=== PATIENT | male | born 1945 | race Caucasian/White ===

== ENCOUNTER 2017-07-06 08:59 | Day surgery (SDC) | payer MEDICARE, OTHER ==
[2017-07-06] VITALS (8 sets, daily range): BP systolic 122–147; BP diastolic 72–92; PULSE 60–79; TEMP 97.7
[~2017-07-06] VITALS: Ht 198.1 cm; Wt 106.8 kg
[~2017-07-06 08:59] MED LIST: CELEBREX 200MG200 MG PO; COREG 25MG25 MG/TAB PO; DIOVAN HCT 12.51 TA2 PO; FLUOXETINE20 MG PO; VITAMIN D31000 IU PO; WARFARIN SOD5 MG PO
[2017-07-06 09:16] LABS: HEMATOCRIT 41.8 % (42.0-52.0); HEMOGLOBIN 14.3 g/dl (13.5-18.0); MEAN CELL VOLUME 93 fl (80.0-100.0); MEAN CORPUSCULAR HEMOGLOBIN 32 pg (27.0-31.0); MEAN CORPUSCULAR HGB CONC 34 g/dl (33.0-37.0); MEAN PLATELET VOLUME 9.6 fl (7.4-10.4); PLATELET COUNT 129 K/mm3 (130-400); RED BLOOD COUNT 4.52 M/mm3 (4.20-5.60); REDCELL DISTRIBUTION WIDTH-CV 13.6 % (11.5-14.5); WHITE BLOOD COUNT 6.8 K/mm3 (4.8-10.8)
[2017-07-06 09:21] LABS: INR 1.3 (0.8-3.0); PROTHROMBIN TIME 14.7 SECONDS (9.7-12.8)
[2017-07-06] MEDS ORDERED: SIMBRINZA 0.2%-18 ML OP (09:30)
[2017-07-06] MEDS ORDERED: ULTRAM 50MG TAB50 MG PO (09:31)
[2017-07-06 09:32] LABS: CALCIUM 9.1 mg/dL (8.4-10.2); CREATININE, serum 1.15 mg/dL (0.66-1.25); POTASSIUM 4.3 mmol/L (3.4-5.0)
[2017-07-06] MEDS ORDERED: PRADAXA 150MG150 MG PO (09:32)
[2017-07-06] MEDS ORDERED: LANOXIN 0.25M0.25 MG PO (09:33)
[2017-07-06] MEDS ORDERED: AMBIEN 5MG TABLE5 MG PO (09:33)
[2017-07-06] MEDS ORDERED: VITAMIN B-1000 MCG/T PO (09:34)
[2017-07-06] MEDS ORDERED: COMPLETE SENIOR1 TA1 PO (09:35)
[2017-07-06] MEDS ORDERED: CEPHALEXIN500 M1 PO (12:51)
== END 2017-07-06 13:52 | disposition home or self-care (01) ==
LOC: COL.CAR 08:59
PROVIDERS: Internal Medicine Cardiovascular Disease
DX: Z45.010 Encounter for checking and testing of cardiac pacemaker pulse generator [battery] (principal); I42.8 Other cardiomyopathies; I48.2 Chronic atrial fibrillation; Z79.01 Long term (current) use of anticoagulants; G47.33 Obstructive sleep apnea (adult) (pediatric); Z80.9 Family history of malignant neoplasm, unspecified; M19.90 Unspecified osteoarthritis, unspecified site; F32.9 Major depressive disorder, single episode, unspecified; I11.0 Hypertensive heart disease with heart failure; I50.9 Heart failure, unspecified; E66.9 Obesity, unspecified; F10.20 Alcohol dependence, uncomplicated; Z87.891 Personal history of nicotine dependence
CPT/HCPCS: C1721; J0690; J2250; J3010; J7040; J7050

== ENCOUNTER 2024-06-05 09:24 | Inpatient (IN) | payer MEDICARE ==
[2024-06-05] VITALS (8 sets, daily range): BP systolic 146–179; BP diastolic 78–95; PULSE 70–81; TEMP 97.5–98.4
[~2024-06-05] VITALS: Ht 198.1 cm; Wt 102.0 kg
[~2024-06-05 09:24] MED LIST changes: +AMBIEN 5MG TABLE5 MG PO; +B-121000 MCG PO; +CEPHALEXIN500 M1 PO; +COMPLETE SENIOR1 TA1 PO; +CREATINE PO; +DILAUDID 4MG TAB4 MG PO; +FLOMAX 0.40.4 MG/CAP PO; +LANOXIN 0.25M0.25 MG PO; +PRADAXA 150MG150 MG PO; +SIMBRINZA 0.2%-18 ML OP; +TOPROL XL 25MG25 MG PO; +ULTRAM 50MG TAB50 MG PO; +VITAMIN B-1000 MCG/T PO; +VITAMIN D31000 I1 PO; +VOLTAREN GEL 1%1 TU TP; +WHEY PROTEIN IS1 POW PO; +XALATAN EYE DROPS OD; +ZOLOFT 100MG100 MG PO
--- NOTE | 2024-06-05 10:38 | NUR ---
PT ADMITTED TO ROOM 344 AMBULATORY. PT IS A/O X4, VSS, PAIN RATING 4/10. TRYO STOUT NOTIFIED OF PT ARRIVAL. IV TO RAC FROM [place].
[2024-06-05] MEDS ORDERED: NEURONTIN300 MG/CAP PO (11:12)
[2024-06-05] MEDS ORDERED: ISOPTIN SR120 MG PO (11:13)
[2024-06-05] MEDS ORDERED: ATIVAN 0.50.5 MG/TAB PO (11:13)
[2024-06-05] MEDS ORDERED: HYDROmorphone 4 MG TAB PO PRN (12:15)
[2024-06-05] MEDS ORDERED: Ondansetron 4 MG/2 ML VIAL IV PRN (12:15)
[2024-06-05] MEDS ORDERED: NS 1,000 ML IV SCH (12:15)
[2024-06-05] MEDS ORDERED: Morphine 4 MG/ML VIAL IV PRN (12:15)
[2024-06-05] MEDS ORDERED: hydrALAZINE 20 MG/ML 1 ML VIAL IV PRN (13:00)
--- NOTE | 2024-06-05 13:54 | NUR ---
SW met with patient and to complete initial assessment for discharge planning. Patient verified that they live in [place]. Patient lists his Rachel ([phone]) as contact and DPOA. Patient states he sees Dr. Alexis Hammond as his PCP and uses [facility] in [place]. Patient states he uses a walking stick and CPAP at home. Patient reports to be independent with all activities and plans to return home at discharge, Discharge plan: Home
--- NOTE | 2024-06-05 14:31 | NUR ---
CONTACTED SHAYLEE SERNA OUTPATIENT R/T SCHEDULING ERCP FOR PT. ALREADY SCHEDULED. DR. JUNG ROUTINE ERCP ORDERS.
--- NOTE | 2024-06-05 19:16 | NUR ---
report received from ric berger. pt resting in bed reading a book. pt denies pain. ivf running to left ac without issue. call light in reach. all needs met at this time.
--- NOTE | 2024-06-05 20:48 | NUR ---
shift assessment complete, see documentation. pt tolerated hs meds well. pt reporting 6/10 abd cramping, prn morphine administered per orders. call light in reach. all needs met at this time.
[2024-06-05] MEDS ORDERED: Latanoprost 0.005% Ophth Soln 2.5 ML BOTTLE OP SCH (21:00)
[2024-06-06] VITALS (20 sets, daily range): BP systolic 128–183; BP diastolic 65–103; PULSE 62–86; TEMP 97.9–98.8
[2024-06-06 06:09] LABS: BASO % 0.1 % (0.0-2.0); EOS # 0.1 K/mm3 (0.0-0.7); GRAN # 5.4 K/mm3 (1.4-6.5); GRAN % 75.5 % (42.2-75.2); HEMATOCRIT 38.9 % (42.0-52.0); HEMOGLOBIN 13.2 g/dl (13.5-18.0); LYMPH # 1.1 K/mm3 (1.2-3.4); MEAN CELL VOLUME 93 fl (80.0-100.0); MEAN CORPUSCULAR HEMOGLOBIN 31 pg (27-31); MEAN CORPUSCULAR HGB CONC 34 g/dl (33.0-37.0); MEAN PLATELET VOLUME 9.4 fl (7.4-10.4); MONO # 0.5 K/mm3 (0.1-0.6); MONO % 6.3 % (1.7-9.3); PLATELET COUNT 145 K/mm3 (130-400); REDCELL DISTRIBUTION WIDTH-CV 13.7 % (11.5-14.5)
[2024-06-06 06:25] LABS: CALCIUM 8.3 mg/dL (8.4-10.2); CREATININE, serum 1.18 mg/dL (0.72-1.25); POTASSIUM 4.1 mEq/L (3.5-4.5); TOTAL PROTEIN 5.3 g/dl (6.2-8.1)
[2024-06-06] MEDS ORDERED: Gabapentin 300 MG CAP PO SCH (09:00)
[2024-06-06] MEDS ORDERED: Verapamil SR 120 MG TAB PO SCH (09:00)
[2024-06-06] MEDS ORDERED: Digoxin 0.25 MG TAB PO SCH (09:00)
--- NOTE | 2024-06-06 09:38 | NUR ---
AM MEDS GIVEN ORDERED. CONSENT SIGNED ON CHART, PLAN ON ERCP LATER TODAY WITH DR. MERCADO. PT IS A/O X4, IV TO RAC.
[2024-06-06] MEDS ORDERED: Lidocaine PF 2% (20 MG/ML) 5 ML VIAL ONE (11:52)
[2024-06-06] MEDS ORDERED: Iohexol 350 - 100 ML VIAL BILE DUCT ONE (12:31)
--- NOTE | 2024-06-06 13:12 | NUR ---
CONTACTED DR. RAMOS FOR SURGICAL CONSULT FROM DR. JUNG.
--- NOTE | 2024-06-06 13:25 | NUR ---
PT TO ROOM 344 PER BED WITH REPORT FROM NARESH SERNA ENDO @1300 . PT IS A/O X4, VSS, PT DENIES PAIN. AT BEDSIDE.
[2024-06-06] MEDS ORDERED: Lisinopril 10 MG TAB PO SCH (15:16)
--- NOTE | 2024-06-06 21:30 | NUR ---
BP RECHECK 151/86.
--- NOTE | 2024-06-06 21:46 | NUR ---
SHIFT ASSESSMENT COMPLETE. PATIENT RESTING IN BED. PATIENTS BP ELEVATED 183/97 AND PATIENT REPORTING PAIN 7/10, PAIN MEDS GIVEN PER ORDERS. WILL RECHECK BP IN ONE HOUR. ALL NIGHT MEDS GIVEN PER ORDERS. PATIENT HAS NO OTHER COMPLAINTS OR REQUEST AT THIS TIME. CALL LIGHT IN REACH.
--- NOTE | 2024-06-06 23:15 | NUR ---
PATIENT BP ELEVATED 183/103. MEDICATION GIVEN ORDERED.WILL RECHECK BP IN 1 HOUR
[2024-06-07] VITALS (12 sets, daily range): BP systolic 113–183; BP diastolic 59–86; PULSE 50–77; TEMP 97.7–98.7
--- NOTE | 2024-06-07 02:50 | NUR ---
BENNY FROM TELE CALLED STATING PATIENTS HR JUMPING TO THE 140'S. CHECKED ON PATIENT AND HE WAS AMBULATING TO RESTROOM, ONCE PATIENT SAT DOWN HR DECLINDEDTO 103. THEN WHEN PATIENT GOT BACK UP TO AMBULATE BACK TO BED HR INCREASED TO 150'S. CONTACTED TELE AND BENNY REPORTED THIS WAS A SHORT TIME AND THAT PATIENT IS BACK TO A REGULAR HR AT 85BPM. WILL CONTINUE TO MONITOR.
--- NOTE | 2024-06-07 04:45 | NUR ---
PATIENT SLEEPING AT THIS TIME HR 74BMP. CALL LIGHT IN REACH
[2024-06-07] MEDS ORDERED: LR 1,000 ML IV SCH (05:00)
[2024-06-07] MEDS ORDERED: Indocyanine Green 12.5 MG in Water For Injection,Sterile 2.5 ML IV SCH (06:00)
[2024-06-07 06:29] LABS: BASO % 0.2 % (0.0-2.0); EOS # 0.1 K/mm3 (0.0-0.7); EOS % 0.8 % (0.0-4.0); GRAN # 7.5 K/mm3 (1.4-6.5); GRAN % 80.8 % (42.2-75.2); HEMATOCRIT 39.7 % (42.0-52.0); HEMOGLOBIN 13.5 g/dl (13.5-18.0); LYMPH # 1.1 K/mm3 (1.2-3.4); LYMPH % 11.5 % (20.0-51.0); MEAN CELL VOLUME 91 fl (80.0-100.0); MEAN CORPUSCULAR HEMOGLOBIN 31 pg (27-31); MEAN CORPUSCULAR HGB CONC 34 g/dl (33.0-37.0); MEAN PLATELET VOLUME 9.5 fl (7.4-10.4); MONO # 0.6 K/mm3 (0.1-0.6); MONO % 6.5 % (1.7-9.3); PLATELET COUNT 139 K/mm3 (130-400); RED BLOOD COUNT 4.35 M/mm3 (4.20-5.60); REDCELL DISTRIBUTION WIDTH-CV 13.5 % (11.5-14.5)
[2024-06-07 06:47] LABS: ALBUMIN 3.1 g/dL (3.4-4.8); BILIRUBIN,TOTAL 1.9 mg/dL (0.2-1.2); CALCIUM 7.7 mg/dL (8.4-10.2); CREATININE, serum 1.02 mg/dL (0.72-1.25); POTASSIUM 3.8 mEq/L (3.5-4.5); TOTAL PROTEIN 5.6 g/dl (6.2-8.1)
[2024-06-07] MEDS ORDERED: fentaNYL 50 MCG/ML 2 ML VIAL ONE ×2 (06:47→08:41)
[2024-06-07] MEDS ORDERED: Ondansetron 4 MG/2 ML VIAL ONE (06:48)
[2024-06-07] MEDS ORDERED: dexAMETHasone 10 MG/ML VIAL ONE (06:48)
[2024-06-07] MEDS ORDERED: Lidocaine PF 2% (20 MG/ML) 5 ML VIAL ONE (06:48)
--- NOTE | 2024-06-07 07:17 | NUR ---
Pt transported to OR
[2024-06-07] MEDS ORDERED: Rocuronium 50 MG/5 ML Multi-Dose VIAL ONE ×2 (07:42→08:39)
[2024-06-07] MEDS ORDERED: dilTIAZem 25 MG/5 ML VIAL ONE (07:56)
[2024-06-07] MEDS ORDERED: Esmolol 10 MG/ML 10 ML VIAL IV ONE (07:57)
[2024-06-07] MEDS ORDERED: Phenylephrine 10 MG/ML VIAL ONE (08:05)
[2024-06-07] MEDS ORDERED: Topical Skin Adhesive 1 EACH (1 ML) TOP ONE (08:24)
[2024-06-07] MEDS ORDERED: Ondansetron 4 MG/2 ML VIAL IV PRN (08:30)
[2024-06-07] MEDS ORDERED: HYDROmorphone 1 MG/1 ML SYRINGE [PACU/SDC ONLY] IV PRN (08:30)
[2024-06-07] MEDS ORDERED: fentaNYL 50 MCG/ML 1 ML SYRINGE/VIAL [PACU/SDC ONLY] IV PRN (08:30)
[2024-06-07] MEDS ORDERED: droPERidol 2.5 MG/ML 2 ML VIAL IV PRN (08:30)
[2024-06-07] MEDS ORDERED: DILAUDID 4MG TAB4 MG PO (08:35)
[2024-06-07] MEDS ORDERED: PRINIVIL10 MG PO (08:35)
--- NOTE | 2024-06-07 10:02 | NUR ---
REPORT GIVEN FROM FLOWER IN PACU. PT RETURNS TO FLOOD VIA BED AT THIS TIME. PT REPORTS 4/10 PAIN BUT DENIES PAIN MEDICATION. PT A&O X4. AT BEDSIDE. NO FURTHER COMPLAINTS AT THIS TIME. CALL LIGHT WITHIN REACH.
--- NOTE | 2024-06-07 10:24 | NUR ---
SHIFT ASSESSMENT COMPLETED AT THIS TIME. MORNING MEDICATIONS ADMINISTERED WITH NO COMPLICATIONS. PT VOICES NO CONCERNS OR COMPLAINTS AT THIS TIME. AT BEDSIDE. CALL LIGHT WITHIN REACH.
--- NOTE | 2024-06-07 13:41 | NUR ---
DISCHARGE ORDERS RECIEVED AT THIS TIME.NURSING STAFF ASSISTED PT ON A WALK. PT TO BATHROOM. PT ATE A LOW FAT LUNCH AND TOLERATED WELL. NO FURTHER COMPLAINTS OR QESTIONS AT THIST YOLANDA.
--- NOTE | 2024-06-07 14:25 | NUR ---
DISCHARGE INSTRUCTIONS AND EDUCATION PROVIDED AT THIS TIME. AT BEDSIDE. PT VOICES UNDERSTANDING AND HAS NO FURTHER QUESTIONS. DC'D INT IN RIGHT AC. DC'D TELE. PT TRANSPORTED VIA WHEELCHAIR TO PRIVATE VEHICLE WITH .
== END 2024-06-07 14:15 | disposition home or self-care (01) | DRG 419 ==
LOC: SURG 09:24
PROVIDERS: Physician Assistant; ADMIT Internal Medicine
PROC: 0FT44ZZ Resection of Gallbladder, Percutaneous Endoscopic Approach (ICD-10-PCS; principal; 2024-06-05)
PROC: 8E0W4CZ Robotic Assisted Procedure of Trunk Region, Percutaneous Endoscopic Approach (ICD-10-PCS; 2024-06-05)
DX: K80.45 Calculus of bile duct with chronic cholecystitis with obstruction (principal)
CPT/HCPCS: C1769; J0295; J0360; J0690; J1100; J1170; J1805; J2270; J2371; J2405; J2704; J3010; J7030; Q9967